=== PATIENT | female | born 1985 | race Caucasian/White ===

== ENCOUNTER → 2021-10-05 | Outpatient (CLI) | payer BC ==
[~2021-10-05] MED LIST: PRENATAL1 TA1 PO
[2021-10-05 17:52] LABS: HEMOGLOBIN 11.9 g/dl (12.5-16.0); MEAN CELL VOLUME 89 fl (80.0-100.0); MEAN CORPUSCULAR HEMOGLOBIN 31 pg (27-31); MEAN CORPUSCULAR HGB CONC 35 g/dl (33.0-37.0); MEAN PLATELET VOLUME 11.1 fl (7.4-10.4); PLATELET COUNT 152 K/mm3 (130-400); RED BLOOD COUNT 3.86 M/mm3 (4.10-5.30); REDCELL DISTRIBUTION WIDTH-CV 12.1 % (11.5-14.5)
[2021-10-05 17:54] LABS: HEMATOCRIT 34.3 % (37.0-47.0)
[2021-10-05 18:08] LABS: ALBUMIN 4.2 gm/dL (3.5-5.0); BILIRUBIN,TOTAL 0.7 mg/dL (0.2-1.2); C-REACTIVE PROTEIN 0.05 mg/dL (0.00-0.50); CREATININE, serum 0.68 mg/dL (0.57-1.11); POTASSIUM 3.6 mmol/L (3.5-4.5); TOTAL PROTEIN 6.6 gm/dL (6.2-8.1)
[2021-10-05 18:23] LABS: ERYTHROCYTE SEDIMENTATION RATE 1 mm/hr (0-20)
== END ==
LOC: COL.LAB 17:19
PROVIDERS: Internal Medicine
DX: N92.1 Excessive and frequent menstruation with irregular cycle (principal)

== ENCOUNTER → 2021-10-06 | Outpatient (CLI) | payer BC | LOC: COL.RAD 07:18 | DX: N92.1 Excessive and frequent menstruation with irregular cycle (principal) | CPT/HCPCS: Q9967 ==

== ENCOUNTER → 2021-10-08 | Outpatient (CLI) | payer BC | LOC: COL.RAD 07:22 | DX: N92.1 Excessive and frequent menstruation with irregular cycle (principal) ==